=== PATIENT | female | born 1990 | race Caucasian/White ===

== ENCOUNTER 2017-04-18 14:05 | Emergency (ER) | payer MEDICAID ==
--- NOTE | 2017-04-18 14:47 | ED Physician Chart ---
ED Chief Complaint/HPI - Patient Information Date Seen:: 04/18/17 Time Seen:: 14:42 Chief Complaint:: Cough, sore throat History of Present Illness:: 26 yo female, , had cough, sore throat for 2 days. The patient had body ache and chills but denied fever. She also had left ear pain and wheezing at night. She stated possible sick contact at home with patient with influenza A. Her last menstrual period was 03/27/17. She knew she was but she did not want to continue the . She had visited [facility] for . Allergies:: Allergies Allergy/AdvReac Type Severity Reaction Status Date / Time codeine Allergy HIVES Verified 04/18/17 14:31 Vitals:: Vital Signs - 8 hr 04/18/17 14:31 Temp 98.2 F HR 95 RR 16 BP 126/88 O2 Sat % 99 ED Review of Systems - Review of Systems General/Constitutional: No fever, Chills Skin: No skin lesions Head: Headache Eyes: No pain ENT: Earache (left), Sore throat Neck: Neck pain Cardio Vascular: No chest pain Pulmonary: No SOB GI: No nausea, No vomiting Musculoskeletal: Muscle pain Psychiatric: No prior psych history Neurological: No focal symptoms ED Past Medical History - Past Medical History Obtainable: No Past Medical History: No significant medical hx Social History: Non Smoker, No Alcohol, No Drug Use Surgical History: None Family Medical History - Family Member Mother Hx Family Cancer: No Hx Family Stroke: No Hx Family Dementia: No Hx Family AIDS: No Hx Family COPD: No Hx Family Tuberculosis: No ED Physical Exam - Physical Examination General/Constitutional: Awake Head: Atraumatic Eyes: PERRL Skin: No skin lesions ENMT: Nasal exam nl Neck: No nuchal rigidity Other Respiratory comments:: mild wheeze Cardio Vascular: RRR, No murmur, gallop, rubs, NL S1 S2 GI: No tenderness/rebounding/guarding : No CVA tenderness Extremities: normal strength in all extremities Neuro/Psych: No focal deficits ED Assessment - Assessment General Assessment: Leukocytosis URI Assessment/Comments:: DuoNeb Rocephin Tylenol Robitussin D/c home Augmentin F/u PCP if cough or sore throat worsen F/u [employer] for ED Septic Shock - . Is Septic Shock (SBP<90, OR Lactate>4 mmol\L) present?: No - <6hrs of presentation: Vital Signs: Vital Signs - 8 hr 04/18/17 14:31 Temp 98.2 F HR 95 RR 16 BP 126/88 O2 Sat % 99 ED Reassessment (Disposition) - Reassessment Reassessment Condition:: Improved - Patient Disposition Discharge/Transfer:: Home ED Discharge Plan - Patient Disposition Prescriptions: Amoxicillin/Clavulanat [Augmentin 875-125mg] 1 tab PO BID #10 tab Instructions: Leukocytosis, Upper Respiratory Infection, Adult, [id number] Additional Instructions: MAKE A FOLLOW UP WITH PRIMARY MEDICAL DOCTOR TOMORROW, COMPLY WITH PRESCRIBED MEDICATION, GO BACK TO EMERGENCY ROOM IF SYMPTOMS WORSEN.
[2017-04-18] MEDS ORDERED: Albuterol/Ipratropium Neb 3 ML AERS HHN ONE ×2 (14:56→15:04)
[2017-04-18 15:18] LABS: % BASOPHILS 1.3 % (0.0-2.0); % EOSINOPHILS 0.9 % (0.0-5.0); % LYMPHOCYTES 5.5 % (20.0-50.0); % NEUTROPHILS 84.3 % (40.0-80.0); BASOPHILE ABSOLUTE 0.2 Th/cumm (0-0.2); EOSINOPHILE ABSOLUTE 0.1 Th/cmm (0.1-0.4); HEMATOCRIT 39.1 % (41.0-60); HEMOGLOBIN 13.3 gm/dL (12-16); LYMPHOCYTE ABSOLUTE 0.9 Th/cmm (1.5-3.0); MEAN CELL VOLUME 87.8 fl (81-100); MEAN CORPUSCULAR HEMOGLOBIN 29.8 pg (27.0-31.0); MEAN PLATELET VOLUME 6.9 fl; MONOCYTE ABSOLUTE 1.3 Th/cmm (0.3-1.0); NEUTROPHILE ABSOLUTE 13.6 Th/cmm (1.8-8.0); PLATELET COUNT 345 Th/cmm (150-400); RED BLOOD COUNT 4.45 Mil/cmm (3.80-5.10)
[2017-04-18 15:31] LABS: WHITE BLOOD COUNT 16.1 Th/cmm (4.8-10.8)
[2017-04-18 15:33] LABS: ALB/GLOB RATIO 1.4 (1.0-1.8); ALBUMIN 4.2 gm/dL (3.7-5.3); ALKALINE PHOSPHATASE 68 U/L (34-104); ANION GAP 11.1 (7.0-16.0); BILIRUBIN,TOTAL 0.5 mg/dL (0.3-1.0); BUN - UREA NITROGEN 6 mg/dL (7-25); CALCIUM SERUM 9.1 mg/dL (8.6-10.3); CARBON DIOXIDE 25.4 mEq/L (21.0-31.0); CHLORIDE 99 mEq/L (98-107); CREATININE - SERUM 0.5 mg/dL (0.6-1.2); GFR AFRICAN-AMERICAN > 60.0 ml/min (>90); GFR NON AFRICAN-AMERICAN > 60.0 ml/min; GLUCOSE 96 mg/dL (70-105); POTASSIUM SERUM 3.5 mEq/L (3.5-5.1); SGOT 14 U/L (13-39); SGPT/ALT 12 U/L (7-52); SODIUM SERUM 132 mEq/L (136-145); TOTAL PROTEIN,SERUM 7.2 gm/dL (6.0-8.3)
[2017-04-18] MEDS ORDERED: cefTRIAXone 1 GM in Sodium Chloride 0.9% 50 ML IV ONE (16:01)
[2017-04-18] MEDS ORDERED: Sodium Chloride 0.9% 1,000 ML IV ONE (16:02)
[2017-04-18] MEDS ORDERED: guaiFENesin 200 MG/10 ML UDC PO ONE (18:00)
[2017-04-18] MEDS ORDERED: guaiFENesin 200 MG/10 ML UDC ONE (18:13)
[2017-04-18 18:30] LABS: INF A SCREEN NEG FOR INF A; INF B SCREEN NEG FOR INF B
[2017-04-18 19:16] LABS: URINE MICROSCOPIC INDICATED? YES; URINE SOURCE RANDOM
[2017-04-18 19:20] LABS: URINE BILIRUBIN NEGATIVE (NEGATIVE); URINE BLOOD LARGE (NEGATIVE); URINE GLUCOSE (UA) NEGATIVE (NEGATIVE); URINE KETONE NEGATIVE (NEGATIVE); URINE LEUKOCYTE ESTERASE NEGATIVE (NEGATIVE); URINE NITRATE NEGATIVE (NEGATIVE); URINE PH 6.5 (4.6 - 8.0); URINE PROTEIN NEGATIVE (NEGATIVE)
[2017-04-18 19:41] LABS: URINE CLARITY HAZY (CLEAR); URINE COLOR YELLOW
[2017-04-18 19:42] LABS: URINE BACTERIA FEW /hpf (NONE SEEN); URINE EPITHELIAL CELLS MODERATE /lpf (FEW)
[2017-04-19] MEDS ORDERED: Amoxicillin/Clavulanat 875/125 Tab PO SCH (09:00)
== END 2017-04-18 20:00 | disposition home or self-care (01) ==
LOC: ER 14:05
DX: O99.519 Diseases of the respiratory system complicating pregnancy, unspecified trimester (principal); J06.9 Acute upper respiratory infection, unspecified; D72.829 Elevated white blood cell count, unspecified; Z88.5 Allergy status to narcotic agent; Z3A.00 Weeks of gestation of pregnancy not specified
CPT/HCPCS: 99284; 96365; 94640; 36415; 83605; 87804 ×2; 85007; 85027; 81001; 81025; 80053; 87040; J0696; Z7502; Z7610

== ENCOUNTER 2017-06-02 10:48 | Emergency (ER) | payer MEDICAID ==
--- NOTE | 2017-06-02 12:08 | ED Physician Chart ---
ED Chief Complaint/HPI - Patient Information Date Seen:: 06/02/17 Time Seen:: 11:55 Chief Complaint:: PAIN IN RT ARM AND ALONG RT COSTAL MARGIN History of Present Illness:: THIS 26 YEAR OLD FEMALE PRESENTS WITH A THREE-DAY HISTORY OF SUSPECTED INSECT BITES IN HER RIGHT ARM. SHE DENIES ITCHING BUT HAS A SORENESS IN THE AREA. SHE DENIES ANY FEVER, CHILLS OR PRIOR SIMILAR EPISODES. SHE HAS EXPERIENCED NO WARMTH OR REDNESS IN THE REGION BUT HAS NOTED 3 MINUTE RED DOTS THAT SHE THINKS HER INSECT BITES. SHE RATES THE SEVERITY OF THE DISCOMFORT A 2/10. THERE ARE NO EXACERBATING OR RELIEVING FACTORS. THE PATIENT ALSO COMPLAINS OF SORENESS ALONG THE LEFT COSTAL MARGIN WHICH HAS BEEN PRESENT FOR 2-3 DAYS. SHE DENIES ANY ASSOCIATED REGIONAL TRAUMA. SHE DENIES ANY DIFFICULTY BREATHING, COUGH OR HEMOPTYSIS. Allergies:: Allergies Allergy/AdvReac Type Severity Reaction Status Date / Time codeine Allergy HIVES Verified 04/18/17 14:31 Historian:: EMS, Other ([employer].) ED Review of Systems - Review of Systems General/Constitutional: No fever, No chills Skin: Rash Head: No headache Eyes: No loss of vision ENT: No earache, No sore throat, No tinnitus Neck: No neck pain, No swelling, No thyromegaly, No stiffness, No mass noted G/U: No dysuria, No hematuria, No nacturia Data Governance Analyst: No abnormal vaginal bleed Musculoskeletal: No bone or joint pain, No muscle pain Endocrine: No polyuria, No polydipsia Psychiatric: No prior psych history, No depression, No suicidal ideation Hematopoietic: No bruising, No lymphadenopathy Allergic/Immuno: No urticaria, No angioedema Neurological: No syncope, No focal symptoms, No headache, No seizure ED Past Medical History - Past Medical History Past Medical History: No significant medical hx Social History: Non Smoker, No Alcohol, No Drug Use, Single, Lives With Parents Surgical History: None Family Medical History - Family Member Mother Hx Family Cancer: No Hx Family Stroke: No Hx Family Dementia: No Hx Family AIDS: No Hx Family COPD: No Hx Family Tuberculosis: No ED Physical Exam - Physical Examination General/Constitutional: Alert, No distress, Non-toxic appearing Other Gen/Cons comments:: BELÉN facial appearance. Head: Atraumatic (NO PALPABLE SWELLING, NO HEAD LACERATIONS.) Eyes: Lids, conjuctiva normal, PERRL, EOMI Other Eyes comments:: Patient has arcus senilis corneal discoloration. Skin: No rash (eczematoid like rash back of both hands.), No skin lesions, No ecchymosis, Well hydrated, No lymphadenopathy Other Skin comments:: PATIENT HAS ECZEMA RELATED TYPE RASH ON THE BACK OF BOTH HANDS. ENMT: External ears, nose nl, TM canals nl, Lips, teeth, gums nl, Oropharynx nl , Tonsils nl Other ENMT comments:: Patient has multiple teeth which are broken off. Neck: Nontender, Full ROM w/o pain, No JVD, No nuchal rigidity, No bruit, No mass Other Neck comments:: Mild tenderness over the left costal margin. No crepitus noted. Respiratory: Nl effort/Exclusion, No Wheeze/Rhonchi/Rales ED Labs/Radiology/EKG Results - Lab Results Results: NO INDICATIONS FOR RADIOGRAPHIC OR LABORATORY STUDIES. ED Assessment - Assessment General Assessment: CASE SUMMARY: THIS 26-YEAR-OLD FEMALE CAME IN WITH HER YOUNGER SISTER WHO CURRENTLY HAS A SORE THROAT. THE PATIENT COMPLAINED OF TENDERNESS IN THE RIGHT ARM THAT SHE BELIEVES WERE CAUSED BY INSECT BITES. HE ALSO COMPLAINED OF PAIN OVER THE LEFT COSTAL MARGIN BUT DENIED ANY INJURIES OR RECENT TRAUMA. ON PHYSICAL EXAMINATION THERE WAS MINIMAL TENDERNESS OVER THE RIGHT ARM AND THE LEFT COSTAL MARGIN. BREATH SOUNDS WERE CLEAR BILATERALLY. THE ABDOMEN IS SOFT AND NONTENDER WITH NO ENLARGEMENT OF THE LIVER OR SPLEEN. PATIENT WAS FELT TO HAVE A MILD CONTUSION TO THE LEFT COSTAL REGION. SHE WAS ADVISED TO TAKE OVER- THE-COUNTER IBUPROFEN OR ACETAMINOPHEN FOR PAIN CONTROL. SHE WAS ADVISED TO FOLLOW-UP WITH HER PRIMARY CARE PHYSICIAN IN THE NEXT WEEK TO 10 DAYS FOR REEVALUATION. SHE WAS FURTHER ADVISED TO RETURN TO THE EMERGENCY DEPARTMENT FOR SIGNIFICANT WORSENING OF HER SYMPTOMS. DISCHARGED IN STABLE CONDITION. ED Septic Shock - . Is Septic Shock (SBP<90, OR Lactate>4 mmol\L) present?: No ED Reassessment (Disposition) - Reassessment Reassessment Condition:: Unchanged - Diagnosis Diagnosis:: LT COSTAL MARGIN CONTUSION. SORENESS RT ARM. ED Discharge Plan - Patient Disposition Admit/Discharge/Transfer: PT DISCHARGED HOME Condition at Disposition: Stable Instructions: Rash, Rib Contusion Forms: Work Release Form
== END 2017-06-02 12:30 | disposition home or self-care (01) ==
LOC: ER 10:48
DX: S20.212A Contusion of left front wall of thorax, initial encounter (principal); M79.601 Pain in right arm; X58.XXXA Exposure to other specified factors, initial encounter; Y93.89 Activity, other specified; Y92.89 Other specified places as the place of occurrence of the external cause; Y99.8 Other external cause status
CPT/HCPCS: Z7502

== ENCOUNTER 2017-10-22 16:16 | Emergency (ER) | payer MEDICAID ==
[2017-10-22] MEDS ORDERED: Sodium Chloride 0.9% 1,000 ML IV ONE (16:51)
[2017-10-22 17:03] LABS: % BASOPHILS 0.8 % (0.0-2.0); % EOSINOPHILS 2.7 % (0.0-5.0); % LYMPHOCYTES 19.1 % (20.0-50.0); % MONOCYTES 9.8 % (2.0-10.0); % NEUTROPHILS 67.6 % (40.0-80.0); BASOPHILE ABSOLUTE 0.1 Th/cumm (0-0.2); EOSINOPHILE ABSOLUTE 0.3 Th/cmm (0.1-0.4); HEMATOCRIT 38.7 % (41.0-60); HEMOGLOBIN 13.3 gm/dL (12-16); LYMPHOCYTE ABSOLUTE 1.8 Th/cmm (1.5-3.0); MEAN CELL VOLUME 85.8 fl (81-100); MEAN CORPUSCULAR HEMOGLOBIN 29.6 pg (27.0-31.0); MEAN CORPUSCULAR HGB CONC 34.4 pg (28.0-36.0); MEAN PLATELET VOLUME 6.4 fl; MONOCYTE ABSOLUTE 0.9 Th/cmm (0.3-1.0); NEUTROPHILE ABSOLUTE 6.5 Th/cmm (1.8-8.0); PLATELET COUNT 393 Th/cmm (150-400); RED BLOOD COUNT 4.51 Mil/cmm (3.80-5.10); RED CELL DISTRIBUTION WIDTH 12.4 % (11.5-20.0); WHITE BLOOD COUNT 9.6 Th/cmm (4.8-10.8)
--- NOTE | 2017-10-22 17:09 | ED Physician Chart ---
ED Chief Complaint/HPI - Patient Information Date Seen:: 10/22/17 Time Seen:: 16:50 Chief Complaint:: Dysuria History of Present Illness:: onset x one week of dysuria and polyuria; pt denies trauma, H/As, S/T, neck pain , cough, C/P, SOB, Abd. 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:: Allergies Allergy/AdvReac Type Severity Reaction Status Date / Time codeine Allergy HIVES Verified 04/18/17 14:31 Vitals:: Vital Signs - 8 hr 10/22/17 16:50 Temp 99.1 F HR 83 RR 16 BP 111/69 O2 Sat % 98 Historian:: Patient Review:: Nurse's Note Reviewed ED Review of Systems - Review of Systems General/Constitutional: No fever, No chills, No weight loss, No weakness, No diaphoresis, No edema, No loss of appetite Skin: No skin lesions, No rash, No bruising Head: No headache, No light-headedness Eyes: No loss of vision, No pain, No diplopia ENT: No earache, No nasal drainage, No sore throat, No tinnitus Neck: No neck pain, No swelling, No thyromegaly, No stiffness, No mass noted Cardio Vascular: No chest pain, No palpitations, No PND, No orthopnea, No edema Pulmonary: No SOB, No cough, No sputum, No wheezing GI: No nausea, No vomiting, No diarrhea, No pain, No melena, No hematochezia, No constipation, No hematemesis G/U: Dysuria, Frequency, No hematuria, No nacturia 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 discharge, No abnormal vaginal bleed, No contraction Musculoskeletal: No bone or joint pain, No back pain, No muscle pain Endocrine: No polyuria, No polydipsia Psychiatric: No prior psych history, No depression, No anxiety, No suicidal ideation, No homicidal ideation, No auditory hallucination, No visual hallucination Hematopoietic: No bruising, No lymphadenopathy Allergic/Immuno: No urticaria, No angioedema Neurological: No syncope, No focal symptoms, No weakness, No paresthesia, No headache, No seizure, No dizziness, No confusion, No vertigo ED Past Medical History - Past Medical History Obtainable: Yes Past Medical History: No significant medical hx Family History: None Social History: Non Smoker, No Alcohol, No Drug Use, Single Surgical History: None Psychiatricy History: None Medication: Reviewed Family Medical History - Family Member Mother History Unknown: Yes Hx Family Cancer: No Hx Family Stroke: No Hx Family Dementia: No Hx Family AIDS: No Hx Family COPD: No Hx Family Tuberculosis: No ED Physical Exam - Physical Examination General/Constitutional: Awake, Well-developed, well-nourished, Alert, No distress, GCS 15, Non-toxic appearing, Ambulatory Head: Atraumatic Eyes: Lids, conjuctiva normal, PERRL, EOMI Skin: Nl inspection, No rash, No skin lesions, No ecchymosis, Well hydrated, No lymphadenopathy ENMT: External ears, nose nl, TM canals nl, Nasal exam nl, Lips, teeth, gums nl , Oropharynx nl, Tonsils nl Neck: Nontender, Full ROM w/o pain, No JVD, No nuchal rigidity, No bruit, No mass, No stridor Respiratory: Nl effort/Exclusion, Clear to Auscultation, No Wheeze/Rhonchi/Rales Cardio Vascular: RRR, No murmur, gallop, rubs, NL S1 S2, Carotid/Femoral/Distal pulses equal bilaterally GI: No tenderness/rebounding/guarding, No organomegaly, No hernia, Normal BS's, Nondistended, No mass/bruits, No McBurney tenderness : No CVA tenderness Extremities: No tenderness or effusion, Full ROM, normal strength in all extremities, No edema, Normal digits & nails Neuro/Psych: Alert/oriented, DTR's symmetric, Normal sensory exam, Normal motor strength, Judgement/insight normal, Mood normal, Normal gait, No focal deficits Misc: Normal back, No paraspinal tenderness ED Labs/Radiology/EKG Results - Lab Results Results: Laboratory Tests 10/22/17 16:57 WBC 9.6 RBC 4.51 Hgb 13.3 Hct 38.7 L MCV 85.8 MCH 29.6 MCHC Differential 34.4 RDW 12.4 Plt Count 393 MPV 6.4 Neutrophils % 67.6 Lymphocytes % 19.1 L Monocytes % 9.8 Eosinophils % 2.7 Basophils % 0.8 ED Septic Shock - . Is Septic Shock (SBP<90, OR Lactate>4 mmol\L) present?: No - <6hrs of presentation: Vital Signs: Vital Signs - 8 hr 10/22/17 16:50 Temp 99.1 F HR 83 RR 16 BP 111/69 O2 Sat % 98 ED Reassessment (Disposition) - Diagnosis Diagnosis:: Dysuria; Polyuria
[2017-10-22 17:21] LABS: AMYLASE SERUM 37 U/L (29-103); ANION GAP 10.7 (7.0-16.0); BUN - UREA NITROGEN 8 mg/dL (7-25); CALCIUM SERUM 8.7 mg/dL (8.6-10.3); CARBON DIOXIDE 27.2 mEq/L (21.0-31.0); CHLORIDE 105 mEq/L (98-107); CREATININE - SERUM 0.8 mg/dL (0.6-1.2); GFR AFRICAN-AMERICAN > 60.0 ml/min (>90); GFR NON AFRICAN-AMERICAN > 60.0 ml/min; GLUCOSE 107 mg/dL (70-105); LIPASE 20 U/L (11-82); POTASSIUM SERUM 3.9 mEq/L (3.5-5.1); SODIUM SERUM 139 mEq/L (136-145)
[2017-10-22 17:38] LABS: URINE MICROSCOPIC INDICATED? YES; URINE SOURCE CLEAN C
[2017-10-22 17:40] LABS: URINE BLOOD LARGE (NEGATIVE); URINE GLUCOSE (UA) NEGATIVE (NEGATIVE); URINE KETONE NEGATIVE (NEGATIVE); URINE LEUKOCYTE ESTERASE SMALL (NEGATIVE); URINE NITRATE NEGATIVE (NEGATIVE); URINE PROTEIN 30 mg/dL (NEGATIVE)
[2017-10-22 17:53] LABS: URINE CLARITY CLOUDY (CLEAR); URINE COLOR YELLOW
[2017-10-22 17:57] LABS: URINE BILIRUBIN NEGATIVE (NEGATIVE)
[2017-10-22 17:58] LABS: URINE RBC 25-50 /hpf (0-5)
[2017-10-22 17:59] LABS: URINE BACTERIA NONE SEEN /hpf (NONE SEEN); URINE EPITHELIAL CELLS OCCASIONAL /lpf (FEW); URINE WBC 25-50 /hpf (0-5)
[2017-10-22] MEDS ORDERED: cefTRIAXone 1 GM in Sodium Chloride 0.9% 50 ML IV ONE (18:05)
== END 2017-10-22 18:30 | disposition home or self-care (01) ==
LOC: ER 16:16
DX: R35.0 Frequency of micturition (principal); R35.8 Other polyuria; R30.0 Dysuria; Z88.5 Allergy status to narcotic agent
CPT/HCPCS: 99284; 96365; 36415; 85025; 87086; 81001; 82150; 84703; 83690; 80048; J0696; J7030; Z7502